=== PATIENT | male | born 1995 | race Two or more races ===

== ENCOUNTER 2023-07-22 00:28 | Emergency (ER) | payer OTHER, SELFPAY ==
[2023-07-22 00:32] VITALS: BP 154/88; PULSE 87; TEMP 36.3; O2SAT 96; BMI 35.0
--- NOTE | 2023-07-22 00:55 | ED_ITS ---
HPI - Dental/Oral General Chief complaint: Dental/Oral Stated complaint: DENTAL PAIN Time Seen by Provider: 07/22/23 00:30 Source: patient Mode of arrival: walk-in History of Present Illness HPI Narrative: 27-year-old male presents to the emergency department for tooth ache. He is complaining of pain to his left mandibular third molar. It is throbbing and severe. He has a dentist appointment next week. He has had this for the past w [facility]. Related Data Previous Rx's ?Medication ?Instructions ?Recorded hydrocodone 5 mg-acetaminophen 325 1 tab PO Q6H PRN pain 5 days #20 07/22/23 mg tablet tabs ibuprofen 800 mg tablet 800 mg PO Q8H PRN pain #20 tabs 07/22/23 penicillin V potassium 250 mg 250 mg PO QID 10 days #40 tabs 07/22/23 tablet Allergies Allergy/AdvReac Type Severity Reaction Status Date / Time albuterol Allergy Verified 07/22/23 00:36 Review of Systems ROS Narrative A ten point review of systems is negative except as noted above. Exam Narrative Exam Narrative: Nurses note and vital signs reviewed and patient is not hypoxic. General: The patient appears well and in no apparent distress. Patient is resting comfortably on cart. Skin: Warm, dry, no pallor noted. There is no rash noted. Head: Normocephalic, atraumatic Eye: Normal conjunctiva, no drainage, Ears, Nose, Mouth, and Throat: oral mucosa is moist. Nares patent. He is handling his oral secretions well and there is no swelling to the floor of his mouth. Obvious dental caries present in the left mandibular third molar. No bleeding or pus present. Cardiovascular: Regular Rate and Rhythm Respiratory: Patient is in no distress, no accessory muscle use, lungs are clear to auscultation, no wheezing, rales or rhonchi Back: non-tender GI: Soft and nontender Musculoskeletal: The patient has no evidence of calf tenderness, no pitting edema, symmetrical pulses noted bilaterally Neurological: A&O, normal speech Psychiatric: Cooperative Constitutional Vital Signs, click to edit/add: Last Vital Signs Temp 97.4 F L 07/22/23 00:32 Pulse 87 07/22/23 00:32 Resp 18 07/22/23 00:32 BP 154/88 H 07/22/23 00:32 Pulse Ox 96 07/22/23 00:32 Course Vital Signs Vital signs: Vital Signs Temperature 97.4 F L 07/22/23 00:32 Pulse Rate 87 07/22/23 00:32 Respiratory Rate 18 07/22/23 00:32 Blood Pressure 154/88 H 07/22/23 00:32 Pulse Oximetry 96 07/22/23 00:32 Temperature 97.4 F L 07/22/23 00:32 Pulse Rate 87 07/22/23 00:32 Respiratory Rate 18 07/22/23 00:32 Blood Pressure 154/88 H 07/22/23 00:32 Pulse Oximetry 96 07/22/23 00:32 MDM - Dental/Oral MDM Narrative Medical decision making narrative: He was given IM Toradol and oral penicillin here and prescribed Raymond, penicillin, and ibuprofen. He will follow-up with his dentist. Treatment diagnosis and follow-up were discussed with the patient. Differential Diagnosis Differential diagnosis: Likely gingival abscess, dental caries, toothache and dental abscess Discharge Plan Discharge Stand Alone Forms: Portal Instructions Chief Complaint: Dental/Oral Clinical Impression: Dental caries Patient Disposition: Home, Self-Care Time of Disposition Decision: 00:53 Condition: Good Mode of Transportation: Private Vehicle Prescriptions / Home Meds: New hydrocodone-acetaminophen 5-325 mg tablet 1 tab PO Q6H PRN (Reason: pain) 5 Days Qty: 20 0RF penicillin V potassium 250 mg tablet 250 mg PO QID 10 Days Qty: 40 0RF ibuprofen 800 mg tablet 800 mg PO Q8H PRN (Reason: pain) Qty: 20 0RF Print Language: Arabic Instructions: Toothache (ED) Additional Instructions: Follow-up with your dentist as scheduled Referrals: Physician,Non-Staff, MD [Primary Care Provider] - 1 week
[2023-07-22] MEDS: KETOROLAC TROMETHAMINE 60 MG/2 ML VIAL IM (01:12)
[2023-07-22] MEDS: PENICILLIN V POTASSIUM 250 MG TABLET PO (01:12)
== END 2023-07-22 01:18 | disposition home or self-care (01) ==
PROVIDERS: Emergency Provider Emergency Medicine
DX: K02.9 Dental caries, unspecified (principal)
CPT/HCPCS: 96372; 99284; J1885